=== PATIENT | female | born 1940 | race Caucasian/White ===

== ENCOUNTER → 2017-11-29 | Outpatient (CLI) | payer MEDICARE, OTHER | LOC: M.CT 11:28 | DX: R91.8 Other nonspecific abnormal finding of lung field (principal); N28.89 Other specified disorders of kidney and ureter ==

== ENCOUNTER → 2018-06-12 | Outpatient (CLI) | payer MEDICARE, OTHER | LOC: M.RAD 10:13 | DX: Z12.31 Encounter for screening mammogram for malignant neoplasm of breast (principal) ==

== ENCOUNTER → 2018-07-27 | Outpatient (CLI) | payer MEDICARE, OTHER | LOC: M.ULTRA 12:00 | DX: M79.89 Other specified soft tissue disorders (principal) ==